=== PATIENT | male | born 1985 | race Caucasian/White ===

== ENCOUNTER 2016-08-29 18:35 | Emergency (ER) | payer SELFPAY ==
[2016-08-29 18:42] VITALS: BP 128/78; PULSE 73; RESP 20; O2SAT 98
--- NOTE | 2016-08-29 19:27 | DRSVH ---
PROCEDURE: X-RAY LEFT WRIST COMPLETE, MINIMUM THREE VIEWS ([id number]) INDICATIONS: injury, pain TECHNIQUE: 4 views of the wrist were acquired. COMPARISON: None. FINDINGS: Bones: Triquetral fracture is noted. Scaphoid view: Scaphoid is intact Soft tissues: No suspicious soft tissue calcifications. IMPRESSION: Triquetral fracture. Dictated by: Cat Tracy MD, PhD on 08/29/2016 at 19:24 Approved by: Cat Tracy MD, PhD on 08/29/2016 at 19:25
--- NOTE | 2016-08-29 19:27 | DRSVH ---
PROCEDURE: X-RAY RIGHT HIP COMPLETE, MINIMUM TWO VIEWS ([id number]) INDICATIONS: injury, pain TECHNIQUE: 2 views of the hip were acquired. COMPARISON: None. FINDINGS: Bones: No fractures or dislocations. No suspicious bony lesions. The visualized pelvic ring appear s intact. Soft tissues: No suspicious soft tissue calcifications or masses. IMPRESSION: No fracture. No osseous lesion. If there are persistent symptoms or clinical suspicion f or pathology, then repeat radiographs or advanced imaging (CT, MRI or bone scan) should be considered for further evaluation. Dictated by: Cat Tracy MD, PhD on 08/29/2016 at 19:25 Approved by: Cat Tracy MD, PhD on 08/29/2016 at 19:26
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
[2016-08-29] MEDS ORDERED: IBUP-1827 PO (21:23)
[2016-08-29] MEDS ORDERED: TdaP Vaccine 0.5 mL Inj IM ONE (21:25)
[2016-08-29] MEDS ORDERED: _HYDROcodone/APAP 5-325 mg Tablet PO PRN (21:25)
[2016-08-29 22:09] VITALS: BP 135/87; PULSE 71; O2SAT 94
== END 2016-08-29 22:20 | disposition home or self-care (01) ==
LOC: SED 18:35
DX: S62.112A Displaced fracture of triquetrum [cuneiform] bone, left wrist, initial encounter for closed fracture (principal); S30.811A Abrasion of abdominal wall, initial encounter; S70.01XA Contusion of right hip, initial encounter; S40.811A Abrasion of right upper arm, initial encounter; V86.59XA Driver of other special all-terrain or other off-road motor vehicle injured in nontraffic accident, initial encounter; Y93.89 Activity, other specified; Y92.9 Unspecified place or not applicable; Y99.8 Other external cause status; Z23 Encounter for immunization